=== PATIENT | female | born 1940 | race Caucasian/White ===

== ENCOUNTER → 2017-02-21 | Outpatient (CLI) | payer OTHER ==
[~2017-02-21] VITALS: Ht 167.6 cm; Wt 106.5 kg
[~2017-02-21] MED LIST: ALEVE220 M1 PO; APAP500 PO; ASPIRIN325; CARDIZEM CD180 MG PO; CLONIDINE0.1 PO; COLACE100 MG PO; DILTIAZEM 24HR240 MG PO; DILTIAZEM 24HR360 M1 PO; HYDROCHLOROTHIA25 M1 PO; HYDROCHLOROTHIA25 M2 PO; HYDROCODON-ACE1 EAC8 PO; HYDROCODONE-AP1 EAC6 PO; LIPITOR10 MG PO; LISINOPRIL20 MG PO; NABUMETONE 500500 M2 PO; NABUMETONE 750750 M1 PO; NORTRIPTYLINE H10 M1 PO; NORTRIPTYLINE H50 MG PO; RELAFEN750 MG PO; SEROQUEL 25 MG25 M1 PO; SIMVASTATIN40 MG PO; TRAMADOL 50 MG50 MG PO; TYLENOL325 MG PO; ULTRAM 50MG TAB50 MG PO; VOLTAREN GEL 1100 G2 TOP; ZESTRIL40 MG PO
--- NOTE | ~2017-02-21 | HPC ---
[facility] [place] [address] PAIN MANAGEMENT CONSULTATION Name: SU FONTANA Room #: REG BHUPENDRA Adamson.#: [id number] Admission: 02/21/17 Attend Phys: Mirza Calderon DO Discharge: Date of : 39 Report #: [id number] THIS REPORT FOR: //name// CC: Shirley Calderon DATE OF SERVICE: 02/21/2017 The patient is a 76-year-old female, prior seen nearly 2 years ago, in December 2014 for lumbar radiculopathy status post decompressive laminectomy, component of SI mediated pain. The patient was given epidural injection with about 70% improvement of pain, somewhat lost to follow up. We had discussed briefly spinal cord stimulator at that time. She returns to pain clinic today. We had a prolonged visit, greater than 30 minutes was spent with the patient today discussing therapeutic options. The patient notes that pain has recurred, low back, right leg, lateral aspect. She had 2 back surgeries, last one being in 2013. She states her pain is 9 on VAS, pain is in the low back, right leg down to the foot, exacerbated with standing and walking, some relief when she is sitting. She has failed conservative therapies including prior surgeries, physical therapy, nonsteroidal anti-inflammatory medications including a topical application of Voltaren gel and [id number] NSAIDs. She has tried opiate analgesics including tramadol and hydrocodone with nominal efficacy and concern for cognitive dysfunction. PHYSICAL EXAMINATION: Shows a 76-year-old female, BMI is elevated at 37.9 kilograms per meter squared. Blood pressure is 165/79, pulse 66, respirations 20. Rises from chair using armrest. Gait is tandem. Lower extremity strength shows diminution in the right leg strength compared to the left. Positive straight leg raise on the right. Slight decreased plantar flexion and lower extremity extension primarily. Gait is antalgic. Patellar reflex diminished bilaterally. Skin integument is intact. DIAGNOSTIC STUDIES: Are quite dated including MRI of the lumbar spine from 05/02/2011 noting lumbar spondylosis with disk bulging at multiple levels, severe stenosis at L5-S1. Again, this is prior to her second back surgery (2013). ASSESSMENT: Symptomatic lumbar radiculopathy, status post decompressive laminectomy by clinical exam and history, having failed conservative therapies. RECOMMENDATIONS: Long discussion with the patient and her daughter and today about therapeutic options. They specifically were questioning me to request information regarding spinal cord stimulator. I had mentioned this 2 years ago as a therapeutic option. [address] [address] PAIN MANAGEMENT CONSULTATION Name: SU FONTANA Room #: REG [facility].#: [id number] Admission: 02/21/17 Attend Phys: Mirza Calderon DO Discharge: Date of : 39 Report #: [id number] At this point, the patient is concerned about a significant impact of pain on her function. She states she can only stand for 5 or 10 minutes at the most. She had trouble walking even from the front of the hospital to the clinic. She has neurogenic claudication, lumbar radicular pain status post decompressive laminectomy, she has failed conservative therapy, she is an excellent candidate for spinal cord stimulator. We talked about purported mechanism of action for stimulator. We talked about details of trial, risks, benefits and expectations. Ultimately, the patient is desirous of moving forward with a spinal cord stimulator trial. She understood that her insurance will require a psychological evaluation. I will like to get more recent MRI of the thoracic and lumbar spine. The lumbar spine to rule out any surgical options that we might be overlooking and thoracic spine in anticipation of spinal cord stimulator implant in the T8-T9 area. Discharged in good and stable condition. We will seek authorization for spinal cord stimulator as soon as we get psychological evaluation back. Discharged in good and stable condition after a prolonged visit (30 minutes), greater than 50% of time spent counseling the patient. <ELECTRONICALLY SIGNED> By: Mirza Calderon DO 02/22/17 0650 1230 [id number] Mirza Calderon DO /nt
[2017-02-21 08:30] VITALS: BP 165/79
== END ==
LOC: PAIN 06:59
DX: M54.16 Radiculopathy, lumbar region (principal)

== ENCOUNTER → 2017-03-07 | Outpatient (CLI) | payer OTHER | LOC: MRI 09:19 | DX: M48.04 Spinal stenosis, thoracic region (principal); M48.061 Spinal stenosis, lumbar region without neurogenic claudication; M46.84 Other specified inflammatory spondylopathies, thoracic region; D18.09 Hemangioma of other sites; M41.84 Other forms of scoliosis, thoracic region; M50.223 Other cervical disc displacement at C6-C7 level; M51.34 Other intervertebral disc degeneration, thoracic region; M54.16 Radiculopathy, lumbar region; M46.86 Other specified inflammatory spondylopathies, lumbar region; M43.16 Spondylolisthesis, lumbar region; M51.46 Schmorl's nodes, lumbar region; M51.36 Other intervertebral disc degeneration, lumbar region; M51.27 Other intervertebral disc displacement, lumbosacral region; Z98.890 Other specified postprocedural states ==

== ENCOUNTER → 2017-04-19 | Outpatient (CLI) | payer OTHER ==
[~2017-04-19] VITALS: Ht 165.1 cm; Wt 110.2 kg
--- NOTE | ~2017-04-19 | HPC ---
[facility] [place] [address] PAIN MANAGEMENT CONSULTATION Name: SU FONTANA Room #: REG Lebron Adamson.#: [id number] Admission: 04/19/17 Attend Phys: Mirza Calderon DO Discharge: Date of : 39 Report #: [id number] THIS REPORT FOR: //name// CC: Shirley Calderon The patient is a delightful 76-year-old female being treated for lumbar radiculopathy status post decompressive laminectomy, spinal stenosis, chronic pain syndrome, having failed conservative therapies. The patient was last seen in the pain clinic 02/21/2017. Having had 2 back surgeries, last in 2013, ongoing low back, lumbar and right radicular pain. We elected to proceed with spinal cord stimulator trial. She presents to pain clinic today for same. ASSESSMENT: 1. Symptomatic lumbar radiculopathy status post decompressive laminectomy. 2. Failed back syndrome. 3. Spinal stenosis with ongoing lumbar radicular pain, right greater than left. PROCEDURE Spinal cord simulator trial x 2, thoracolumbar. DESCRIPTION OF PROCEDURE: After written informed consent was obtained including risk of infection, paralysis and hematoma, the patient wished to proceed. I placed 22 gauge Angiocath in the left distal wrist. The patient was then given 1 gram of Ancef, taken to the fluoroscopy suite, placed in the prone position with appropriate abdominal bolstering. Wide surgical prep and drape was accomplished. A skin wheal with Xylocaine was raised lateral to the L1-2 intervertebral space. A stab incision with 11 scalpel was made. A 14-gauge epidural Tuohy needle was placed to enter the posterior spinous process at T12-L1. Stylet was removed and with a saline filled glass syringe and continuous plunger pressure with biplanar fluoroscopy, the needle was easily advanced into the epidural space. Lead was advanced to the top of the T6 vertebral body. AP and lateral projection showed good placement in the posterior aspect of the epidural space. Attention was then directed to the second lead, a second skin with Xylocaine was raised approximately 1 cm inferior to the former. Again, an #11 scalpel blade was used to make an incision. A 14-gauge epidural Tuohy needle was also placed in the posterior spinous process at T12-L1. Again, the stylet was removed. Saline filled glass syringe was connected with continuous plunger pressure and biplanar fluoroscopy. This needle also was advanced in the epidural space. No blood or cerebrospinal fluid was noted. Second Infinion 15 cm 16 contact trial lead was advanced to the top of T8 parallel and slightly left to the initial which was slightly right of midline. Again, AP and lateral projections showed good lead placement. Intraoperatively, stimulation covered area of primary pain concern. With continuous fluoroscopy noting placement of the tip, the needle and stylet was removed. The leads remained in place. Leads were secured using mastic and Steri-Strips. Wide bolster dressing was accomplished. The patient was allowed [address] [address] PAIN MANAGEMENT CONSULTATION Name: SU FONTANA VÁSQUEZ Room #: EVA Stout#: [id number] Admission: 04/19/17 Attend Phys: Mirza Calderon DO Discharge: Date of : 39 Report #: [id number] to ambulate in the exam room. Stimulatory patterns were reviewed with the [employer] spinal cord stimulator Jodee cavazos. The patient was discharged in good stable condition. Followup will be in 1 week for lead evaluation. The patient has contact information for the [facility] physician manager inspection for any concerns regarding increased pain, weakness, bleeding, fever, chills, etc. <ELECTRONICALLY SIGNED> By: Mirza Calderon DO 04/24/17 0724 0808 [id number] Mirza Calderon DO /nt
[2017-04-19 07:12] VITALS: BP 153/80
== END | disposition home or self-care (01) ==
LOC: PAIN
DX: M54.16 Radiculopathy, lumbar region (principal); Z98.890 Other specified postprocedural states; G89.4 Chronic pain syndrome; M48.00 Spinal stenosis, site unspecified

== ENCOUNTER → 2017-04-25 | Outpatient (CLI) | payer OTHER ==
[~2017-04-25] VITALS: Ht 165.1 cm; Wt 110.2 kg
--- NOTE | ~2017-04-25 | HPC ---
[facility] [place] [address] PAIN MANAGEMENT CONSULTATION Name: SU FONTANA Room #: REG BHUPENDRA Stout#: [id number] Admission: 04/25/17 Attend Phys: Mirza Calderon DO Discharge: Date of : 39 Report #: [id number] THIS REPORT FOR: //name// CC: Shirley Calderon The patient is a pleasant 76-year-old female, prior seen 04/19/2017, for symptomatic lumbar radiculopathy status post decompressive laminectomy, spinal stenosis and chronic pain syndrome. She had failed conservative therapy, we progressed with spinal cord stimulator trial. She returns to pain clinic today rating the pain a 7 on VAS, but notes functional status is greater than 50% improved. She has taken less of her pain medication (Tylenol and tramadol). She is desirous of moving forward with spinal cord stimulator implant. We discussed with the [employer] rep today. We will refer to Dr. Gerald Dueñas for implantation of a spinal cord stimulator paddle lead with a [employer] device. The lead was removed today. Tip was intact. The patient discharged in good and stable condition. <ELECTRONICALLY SIGNED> By: Mirza Calderon DO 04/29/17 0747 1236 [id number] Mirza Calderon, DO /nt
[2017-04-25 09:33] VITALS: BP 155/75
== END ==
LOC: PAIN
DX: M54.16 Radiculopathy, lumbar region (principal); M79.1 Myalgia; G89.29 Other chronic pain

== ENCOUNTER 2019-11-11 19:29 | Inpatient (IN) | payer OTHER ==
[~2019-11-11] VITALS: Ht 170.2 cm; Wt 107.5 kg
[2019-11-11 19:33] VITALS: BP 178/113
[2019-11-11 20:41] LABS: ABSOLUTE NEUTROPHILS 15.9 thou/uL (1.4-8.2); BASOPHILS 0.5 % (0.0-2.0); EOSINOPHILS 0.1 % (0.0-3.0); HEMATOCRIT 46.8 % (37.0-47.0); HEMOGLOBIN 15.3 gm/dL (12.0-15.0); LYMPHOCYTES 5.2 % (24.0-44.0); MCH 26.7 pg (26.0-34.0); MCHC 32.6 g/dL (28.0-37.0); MCV 81.9 fL (80.0-100.0); MONOCYTES 1.4 % (1.0-8.0); PLATELET COUNT 217 thou/uL (150-400); POLYS 92.8 % (36.0-66.0); RBC 5.72 mil/uL (4.20-5.00); RDW 18.3 % (10.5-14.5); WBC 17.2 thou/uL (4.0-11.0)
[2019-11-11 21:03] LABS: URINE BILIRUBIN NEGATIVE (Negative); URINE BLOOD 2+ (Negative); URINE CLARITY CLEAR; URINE COLOR YELLOW; URINE GLUCOSE-RANDOM* NEGATIVE (Negative); URINE KETONES NEGATIVE (Negative); URINE LEUKOCYTES-REFLEX TRACE (Negative); URINE NITRITE-REFLEX NEGATIVE (Negative); URINE PROTEIN (DIPSTICK) TRACE (Negative); URINE UROBILINOGEN 0.2 E.U./dl (0.2-1.0)
[2019-11-11 21:12] LABS: CALCIUM 9.4 mg/dL (8.5-10.1); CREATININE 1.3 mg/dL (0.6-1.0); POTASSIUM 3.7 mmol/L (3.5-5.1)
[2019-11-11 21:17] LABS: ALBUMIN 3.7 g/dL (3.4-5.0); TOTAL BILIRUBIN 0.6 mg/dL (0.2-1.0); TOTAL PROTEIN 7.6 g/dL (6.4-8.2)
[2019-11-11 21:27] LABS: BACTERIA-REFLEX 1-9 Few /HPF (None Seen); CASTS None Seen /LPF (None Seen); CRYSTALS None Seen /LPF (None Seen); SQUAMOUS 0-3 Few /LPF (0-3); URINE RBC 3-10 Few /HPF (0-2); URINE WBC-REFLEX 6-15 Few /HPF (0-5)
[2019-11-11 22:57] VITALS: BP 149/77
[2019-11-11 23:17] VITALS: BP 138/81
[2019-11-11 23:47] VITALS: BP 154/84
[2019-11-12] MEDS ORDERED: CLONIDINE HCL0.1 MG PO (00:09)
[2019-11-12] MEDS ORDERED: ATORVASTATIN CA10 MG PO (00:09)
[2019-11-12] MEDS ORDERED: PREDNISONE 5 MG5 M1 PO (00:09)
[2019-11-12] MEDS ORDERED: NORTRIPTYLINE H25 M3 (00:10)
[2019-11-12] MEDS ORDERED: DILT-XR180 MG PO (00:10)
[2019-11-12] MEDS ORDERED: LISINOPRIL40 MG PO (00:10)
--- NOTE | 2019-11-12 02:07 | NUR ---
PATIENT TRANSFERRED FROM ED AT APPROXIMATELY 2330. RECEIVED REPORT FROM ED NURSE TORY. PATIENT TRANSFERRED SELF FROM CART TO BED WITH SBA. PATIENT PLACED ON ENHANCED PRECAUTIONS D/T COVID R/O. ADMISSION COMPLETED. MED REC DONE BASED OFF RECENT PRESCRIPTIONS FILLED AT PHARMACY. PATIENT STATES THAT SHE KNOWS SHE TAKES MEDICINE SHE JUST DOESN'T KNOW SPECIFICS. PATIENT STATES HAS LIST. WILL ASK DAY SHIFT NURSE TO FOLLOW UP NEEDED. PATIENT RESTING WITH EYES CLOSED AT THIS TIME.
[2019-11-12 04:45] VITALS: BP 144/62
[2019-11-12 05:18] LABS: ANION GAP 11 mmol/L (7-16); BUN 12 mg/dL (7-18); CALCIUM 7.9 mg/dL (8.5-10.1); CHLORIDE 105 mmol/L (98-107); CHOLESTEROL 154 mg/dL (<200); CO2 25 mmol/L (21-32); CREATININE 1.3 mg/dL (0.6-1.0); GLUCOSE 142 mg/dL (74-106); HDL CHOLESTEROL 88 mg/dL (>40); LDL CHOLESTEROL 48 mg/dL (<100); POTASSIUM 3.7 mmol/L (3.5-5.1); SODIUM 141 mmol/L (136-145); TC:HDL 1.8 Ratio (Not establshd); TRIGLYCERIDE 93 mg/dL (<150); VLDL 19 mg/dL (<40)
--- NOTE | 2019-11-12 05:42 | NUR ---
PER DAUGHTER CAM PATIENT HAS A NERVE STIMULATOR. NO MRI
[2019-11-12 05:58] LABS: HEMATOCRIT 40.7 % (37.0-47.0); MCH 27.2 pg (26.0-34.0); MCHC 32.7 g/dL (28.0-37.0); RBC 4.91 mil/uL (4.20-5.00); RDW 18.5 % (10.5-14.5); WBC 25.3 thou/uL (4.0-11.0)
[2019-11-12 06:13] LABS: SERUM ASSESSMENT Clear
[2019-11-12 06:22] LABS: HEMOGLOBIN 13.3 gm/dL (12.0-15.0)
[2019-11-12 09:00] VITALS: BP 170/83
--- NOTE | 2019-11-12 10:36 | NUR ---
WOUND CONSULT; THE PATIENT WAS ASSESSED WFITH THE HUMAN RESOURCES OFFICE ASSISTANT PRESENT. THE LEFT LE EXTREMITY HAS A WOUND REPORTABLY FROM AN EXCISION OF A CANCEROUS GROWTH. THE LE IS BRIGHT RED. NO DRAINAGE WAS SEEN. THE PATIENT IS ON ANTIBIOTICS FOR CELLULITIS. RECOMMENDATIONS; 1-APPLY OPTIFOAM AG TO WOUND BED,SECURE WITH A TUBIGRIP CHANGE M/W/F PRN 2-TURN PATIENT Q2H AND ASSESS BONY PROMINECES
[2019-11-12 12:52] VITALS: BP 141/69
--- NOTE | 2019-11-12 13:40 | NUR ---
INITIAL ASSESSMENT: ROWENA reviewed chart and spoke with nursing and attending physician. Pt was admitted from home due to sepsis/cellulitis. Pt placed in Enhanced Isolation to r/o COVID-19. Test is pending. Pt febrile and on IV abx. Pt does not require O2. ROWENA spoke with pt via phone. Introduced role of SW. Pt appears to be alert/orientated. Pt reports she lives at home with her and was not using DME prior to admission. Pt has been to [facility] in the past for acute rehab following a CVA in 2015. Pt's PCP is Dr. Shirley Sen. Pt listed as patient pay. SW asked pt about her insurance. Pt states she has [employer]. Pt is unable to verify her SS#. Pt's spouse has insurance cards. ROWENA placed call to pt's spouse. No option to leave voice message. ROWENA spoke with pt's stepdtr, Gricelda, via phone. Pt's stepdtr confirms pt and spouse live at home. There are 5 steps up to their bedroom. All of pt's care need can be met on the ground level if needed. Pt does have cane at home to use. Pt's spouse has used HH in the past. Family interested in HH and/or private duty services when pt returns home. Therapy ordered to evaluate pt when able to participate. Pt's step dtr was able to provide insurance information. This information sent to business office. ROWENA is following to assist as needed with discharge planning.
[2019-11-12 16:30] VITALS: BP 144/79
--- NOTE | 2019-11-12 18:05 | NUR ---
RN HAS ASSUMED PT'S CARE AT 0700AM , PT IS A&O X3 AT MOST OF TIME, PT IS CONFUSED AT TIME, PT HAS STARTED IV ABX AND IV FLIUD , PT' S L LE WOUND CARE HAS DONE, PT'S BP AND TEMP HAVE IMPROVED BY THIS TIME, PT DENIES PAIN AND SOB AT THIS TIME.PT'S FIRST COVID TEST WAS NEGATIVE , PT'S SECOND COVID TEST HAS DONE TODAY,BECAUSED PT STILL HAS FEVER AND ABNORMAL LAB RESULTS.
[2019-11-12 19:59] VITALS: BP 140/77
--- NOTE | 2019-11-12 22:38 | NUR ---
PT RESTING IN BED WATCHING TV, TALKING AND LAUGHING. LUNGS WITH WHEEZES. BLE EDEMA, DRESSING INTACT LLE. IVF INTACT. PT ALERT AND FORGETFUL. GENERALIZED PAIN AND TYLENOL PROVIDED. COVID TESTS NEGATIVE AND ORDER RECEIVED REMOVE FROM ISOLATION AND TRANSFER WHEN ROOM READY. BED ALARM ON.
[2019-11-13 00:30] VITALS: BP 177/96
[2019-11-13 03:51] VITALS: BP 151/77
[2019-11-13 05:56] LABS: ABSOLUTE NEUTROPHILS 10.6 thou/uL (1.4-8.2); BASOPHILS 0.2 % (0.0-2.0); EOSINOPHILS 0.6 % (0.0-3.0); HEMATOCRIT 37.3 % (37.0-47.0); HEMOGLOBIN 12.1 gm/dL (12.0-15.0); LYMPHOCYTES 9.7 % (24.0-44.0); MCH 26.8 pg (26.0-34.0); MCHC 32.3 g/dL (28.0-37.0); MCV 83.1 fL (80.0-100.0); MONOCYTES 3.2 % (1.0-8.0); PLATELET COUNT 174 thou/uL (150-400); POLYS 86.3 % (36.0-66.0); RBC 4.49 mil/uL (4.20-5.00); RDW 18.6 % (10.5-14.5); WBC 12.3 thou/uL (4.0-11.0)
[2019-11-13 06:15] LABS: CALCIUM 8.1 mg/dL (8.5-10.1); CREATININE 1.1 mg/dL (0.6-1.0); POTASSIUM 3.3 mmol/L (3.5-5.1)
[2019-11-13 07:21] VITALS: BP 158/87
[2019-11-13 11:59] VITALS: BP 151/87
--- NOTE | 2019-11-13 14:56 | NUR ---
SW reviewed chart and spoke with nursing and attending physician. Enhanced Isolation precautions have been discontinued. Pt to transfer off 3W when a bed is available. Pt is on IV abx. Recommendation made for pt to have HH services when she returns home. ROWENA left voice message for pt's stepdtr, Gricelda, to discuss HH providers. ROWENA is following to assist as needed with discharge planning.
[2019-11-13 15:52] VITALS: BP 151/66
--- NOTE | 2019-11-13 18:29 | NUR ---
RN HAS ASSUMED PT'S CARE AT 0700AM, PT IS A&OX3 AT MOST OF TIME, PT CAN FOLLOW COMMANDS, PT IS CONFUSED AT TIME, PT IS CONTINUING IV ABX AND WOUND CARE , PT GETS UP TO CHAIR WITH ASSIST, PT'S VS ARE STABLE, PT DOES NOT HAVE FVER AND SOB .
[2019-11-14 05:30] LABS: HEMATOCRIT 35.8 % (37.0-47.0); HEMOGLOBIN 11.5 gm/dL (12.0-15.0); MCH 26.8 pg (26.0-34.0); MCHC 32.1 g/dL (28.0-37.0); MCV 83.5 fL (80.0-100.0); RBC 4.29 mil/uL (4.20-5.00); RDW 18.7 % (10.5-14.5); WBC 7.8 thou/uL (4.0-11.0)
[2019-11-14 06:04] LABS: CALCIUM 8.6 mg/dL (8.5-10.1); CREATININE 0.9 mg/dL (0.6-1.0); POTASSIUM 3.7 mmol/L (3.5-5.1)
[2019-11-14 08:34] VITALS: BP 158/77
[2019-11-14] MEDS ORDERED: AMOX TR-K CLV1 EAC4 PO (12:17)
[2019-11-14] MEDS ORDERED: NORVASC 2.5 MG2.5 M1 PO (12:17)
[2019-11-14 12:20] LABS: HEMATOCRIT 35.7 % (37.0-47.0); HEMOGLOBIN 11.6 gm/dL (12.0-15.0)
[2019-11-14 12:26] VITALS: BP 158/77
[2019-11-14 12:46] VITALS: BP 158/77
[2019-11-14 13:32] VITALS: BP 158/77
--- NOTE | 2019-11-14 13:38 | NUR ---
PT DISCHARGING TODAY TO HOME WITH [facility]VERA FAXED DC ORDERS/SUMMARY RECEIVED CONFIRMATION AND LEFT MSG WITH ROMAN IN INTAKE.
[2019-11-14 13:58] VITALS: BP 158/77
[2019-11-14 15:14] VITALS: BP 158/77
== END 2019-11-14 16:16 | disposition home health service (06) | DRG 871 ==
LOC: ER 19:29 → 3W 23:17
PROVIDERS: Emergency Medicine; Hospitalist; Nurse Practitioner Family; ADMIT Internal Medicine; ATTEND Internal Medicine
DX: A41.51 Sepsis due to Escherichia coli [E. coli] (principal); N17.0 Acute kidney failure with tubular necrosis; N39.0 Urinary tract infection, site not specified; L03.116 Cellulitis of left lower limb; L97.929 Non-pressure chronic ulcer of unspecified part of left lower leg with unspecified severity; E78.00 Pure hypercholesterolemia, unspecified; E78.5 Hyperlipidemia, unspecified; M47.816 Spondylosis without myelopathy or radiculopathy, lumbar region; D64.9 Anemia, unspecified; K57.30 Diverticulosis of large intestine without perforation or abscess without bleeding; I12.9 Hypertensive chronic kidney disease with stage 1 through stage 4 chronic kidney disease, or unspecified chronic kidney disease; N18.9 Chronic kidney disease, unspecified; B96.20 Unspecified Escherichia coli [E. coli] as the cause of diseases classified elsewhere; G89.4 Chronic pain syndrome; M54.9 Dorsalgia, unspecified; Z20.828 Contact with and (suspected) exposure to other viral communicable diseases; Z79.899 Other long term (current) drug therapy; Z86.73 Personal history of transient ischemic attack (TIA), and cerebral infarction without residual deficits; Z85.3 Personal history of malignant neoplasm of breast; Z90.11 Acquired absence of right breast and nipple
CPT/HCPCS: 10779; 10879

== ENCOUNTER 2020-12-29 10:40 | Emergency (ER) | payer OTHER ==
[~2020-12-29] VITALS: Ht 165.1 cm; Wt 117.9 kg
[~2020-12-29 10:40] MED LIST changes: +AMOX TR-K CLV1 EAC4 PO; +ATORVASTATIN CA10 MG PO; +CLONIDINE HCL0.1 MG PO; +DILT-XR180 MG PO; +LISINOPRIL40 MG PO; +NORTRIPTYLINE H25 M3; +NORVASC 2.5 MG2.5 M1 PO; +PREDNISONE 5 MG5 M1 PO
[2020-12-29 12:30] LABS: INR 1.46; PROTIME 15.6 Seconds (10.5-12.1)
[2020-12-29 13:30] VITALS: BP 184/94
== END 2020-12-29 13:30 | disposition home or self-care (01) ==
LOC: ER 10:40
PROVIDERS: Emergency Medicine
DX: R04.0 Epistaxis (principal); I10 Essential (primary) hypertension; E78.00 Pure hypercholesterolemia, unspecified; Z90.11 Acquired absence of right breast and nipple; Z79.891 Long term (current) use of opiate analgesic; Z79.899 Other long term (current) drug therapy; Z91.09 Other allergy status, other than to drugs and biological substances

== ENCOUNTER → 2021-02-08 | Outpatient (CLI) | payer OTHER | LOC: SJCVC 10:04 | PROVIDERS: ATTEND Internal Medicine Cardiovascular Disease | DX: R94.31 Abnormal electrocardiogram [ECG] [EKG] (principal); I10 Essential (primary) hypertension; E78.00 Pure hypercholesterolemia, unspecified; R06.00 Dyspnea, unspecified; R60.9 Edema, unspecified; I63.9 Cerebral infarction, unspecified; E78.5 Hyperlipidemia, unspecified; Z79.899 Other long term (current) drug therapy ==

== ENCOUNTER → 2021-03-16 | Outpatient (CLI) | payer MEDICARE | LOC: SJCVCIMAG 07:34 | PROVIDERS: ATTEND Internal Medicine Cardiovascular Disease | DX: N28.1 Cyst of kidney, acquired (principal); I10 Essential (primary) hypertension ==